=== PATIENT | female | born 1970 | race Caucasian/White ===

== ENCOUNTER 2019-01-09 08:35 | Outpatient (CLI) | payer BC | END 2019-01-09 21:07 | disposition home or self-care (01) | LOC: SMA 08:35 | PROVIDERS: ATTEND Family Medicine | DX: Z12.31 Encounter for screening mammogram for malignant neoplasm of breast (principal) | CPT/HCPCS: 77067 ==

== ENCOUNTER 2020-03-17 16:24 | Outpatient (CLI) | payer OTHER | END 2020-03-17 20:15 | disposition home or self-care (01) | LOC: SMA 16:24 | PROVIDERS: ATTEND Family Medicine | DX: Z12.31 Encounter for screening mammogram for malignant neoplasm of breast (principal) | CPT/HCPCS: 77067 ==

== ENCOUNTER 2021-03-24 07:57 | Outpatient (CLI) | payer OTHER | END 2021-03-24 21:00 | disposition home or self-care (01) | LOC: SMA 07:57 | PROVIDERS: ATTEND Family Medicine | DX: Z12.31 Encounter for screening mammogram for malignant neoplasm of breast (principal) | CPT/HCPCS: 77067 ==

== ENCOUNTER 2023-02-15 07:52 | Outpatient (CLI) | payer OTHER | END 2023-02-15 19:07 | disposition home or self-care (01) | LOC: SUS 07:52 | PROVIDERS: ATTEND Nurse Practitioner Family | DX: N60.02 Solitary cyst of left breast (principal); R92.8 Other abnormal and inconclusive findings on diagnostic imaging of breast | CPT/HCPCS: 76642 ==